=== PATIENT | female | born 1955 | race African-American/Black ===

== ENCOUNTER 2017-12-28 13:43 | Inpatient (IN) ==
[2017-12-28] MEDS ORDERED: SODIUM CHLORIDE 0.9% 1,000 ML IV STA (14:05)
[2017-12-28] MEDS ORDERED: ONDANSETRON 4 MG/2 ML VIAL IV STA (14:05)
[2017-12-28 14:10] LABS: Basophils # 0.1 10*3/uL (0.0-0.2); Basophils % 0.8 % (0.0-0.8); Eosinophils # 1.8 10*3/uL (0.0-0.87); Eosinophils % 17.1 % (0.00-10.9); Hematocrit 30.3 VOL% (35.7-47.0); Hemoglobin 10.1 GM/DL (12.0-16.0); Immature Granulocytes % 0.4 %; Immature Granulocytes Absolute 0.04 #; Lymphocytes # 2.5 10*3/uL (1.4-4.0); Lymphocytes % 24.2 % (21.3-54.2); Mean Corpuscular HGB Conc 33.3 GM/DL (32-36); Mean Corpuscular Hemoglobin 32 PG (27-34); Mean Corpuscular Volume 94.4 FL (87-102); Mean Platelet Volume 9.1 FL (9.6-12.0); Monocytes # 0.8 10*3/uL (0.11-0.8); Monocytes % 7.7 % (1.7-12.7); Neutrophils # 5.1 10*3/uL (1.4-7.4); Neutrophils % 49.8 % (38.7-73.9); Platelet Count 258 T/CUMM (130-400); Red Blood Count 3.21 MC/CUMM (3.8-5.5); Red Cell Distribution Width 13.4 % (9.3-17.3); White Blood Count 10.2 T/CUMM (4-12)
[2017-12-28 14:29] LABS: Alanine Aminotransferase 15 U/L (13-56); Albumin 3.3 G/DL (3.4-5.0); Alkaline Phosphatase 102 U/L (45-117); Aspartate Amino Transferase 16 U/L (0-37); Bilirubin,Total < 0.39 MG/DL (0.2-1.0); Blood Urea Nitrogen 23 MG/DL (7-18); Calcium 8.2 MG/DL (8.5-10.1); Glucose 131 MG/DL (74-106); Osmolality,Calculated 288.1 MOS/KG (273-304); Potassium 3.6 MMOL/L (3.5-5.1); Sodium 142 MMOL/L (136-145); Total Protein 7.2 G/DL (6.4-8.3)
[2017-12-28 14:35] LABS: Eosinophils 18 % (0-10); Lymphocytes 26 % (20-55); Segmented Neutrophils 53 % (50-85)
[2017-12-28 14:36] LABS: Hypochromasia 1+; Platelet Estimate Normal
[2017-12-28 14:37] LABS: Reactive Lymphocytes 1+; Total Cells Counted 100
[2017-12-28] MEDS ORDERED: ONDANSETRON 4 MG/2 ML VIAL IV PRN (16:16)
[2017-12-28] MEDS ORDERED: DEXTROSE 50% 25 GM/50 ML VIAL IV PRN (16:24)
[2017-12-28] MEDS ORDERED: GLUCAGON 1 MG VIAL IM PRN (16:24)
[2017-12-28] MEDS ORDERED: SODIUM CHLORIDE 0.9% 500 ML IV STA (17:40)
[2017-12-28] MEDS ORDERED: metroNIDAZOLE 500 MG/100 ML PREMIX IV ONE (17:59)
[2017-12-28] MEDS: metroNIDAZOLE INJ 500 MG in PREMIX 1 EACH IV SCH (18:00)
[2017-12-28] MEDS ORDERED: ENOXAPARIN 30 MG/0.3 ML SYRINGE SUBCUT SCH (21:00)
[2017-12-28] MEDS ORDERED: SODIUM CHLORIDE 0.9% 2,000 ML IV STA (21:52)
[2017-12-28] MEDS: SODIUM CHLORIDE 0.9% 1,000 ML IV SCH (22:00)
[2017-12-28] MEDS: CIPROFLOXACIN INJ 400 MG in PREMIX 1 EACH IV SCH (22:41)
[2017-12-28] MEDS: PREGABALIN 100 MG CAPSULE PO SCH (22:42)
[2017-12-28] MEDS: ASPIRIN EC 81 MG TABLET PO SCH (22:42)
[2017-12-28] MEDS: INSULIN LISPRO 100 UNIT/ML SUBCUT SCH (22:47)
[2017-12-28 23:22] LABS: Thyroid Stimulating Hormone 0.802 uIU/ml (0.358-3.74)
[2017-12-29 00:30] LABS: Troponin I Only < 0.015 NG/ML (0.00-0.045)
[2017-12-29] MEDS: metroNIDAZOLE INJ 500 MG in PREMIX 1 EACH IV SCH ×3 (01:58→17:41)
[2017-12-29] MEDS ORDERED: MAGNESIUM SULF RIDER 4 GM in PREMIX 1 EACH IV PRN (02:12)
[2017-12-29] MEDS: GABAPENTIN 400 MG CAPSULE PO SCH ×2 (02:27→08:08)
[2017-12-29] MEDS: MAGNESIUM SULF RIDER 2 GM in PREMIX 1 EACH IV PRN (03:50)
[2017-12-29 04:59] LABS: Basophils # 0.1 10*3/uL (0.0-0.2); Basophils % 0.9 % (0.0-0.8); Eosinophils # 1.9 10*3/uL (0.0-0.87); Eosinophils % 23.8 % (0.00-10.9); Hemoglobin 9.7 GM/DL (12.0-16.0); Immature Granulocytes % 0.4 %; Immature Granulocytes Absolute 0.03 #; Lymphocytes # 2.3 10*3/uL (1.4-4.0); Lymphocytes % 28.5 % (21.3-54.2); Mean Corpuscular HGB Conc 32.3 GM/DL (32-36); Mean Corpuscular Hemoglobin 30 PG (27-34); Mean Platelet Volume 9.9 FL (9.6-12.0); Monocytes # 0.5 10*3/uL (0.11-0.8); Monocytes % 6.6 % (1.7-12.7); Neutrophils # 3.2 10*3/uL (1.4-7.4); Neutrophils % 39.8 % (38.7-73.9); Platelet Count 231 T/CUMM (130-400); Red Blood Count 3.19 MC/CUMM (3.8-5.5); Red Cell Distribution Width 13.2 % (9.3-17.3); White Blood Count 7.9 T/CUMM (4-12)
[2017-12-29 05:22] LABS: Albumin 2.8 G/DL (3.4-5.0); Bilirubin,Total 0.5 MG/DL (0.2-1.0); Calcium 7.6 MG/DL (8.5-10.1); Osmolality,Calculated 287.8 MOS/KG (273-304); Risk Ratio 3.43; Total Protein 6.1 G/DL (6.4-8.3)
[2017-12-29 05:46] LABS: Eosinophils 38 % (0-10); Hypochromasia 1+; Lymphocytes 26 % (20-55); Platelet Estimate Adequate; Segmented Neutrophils 31 % (50-85); Total Cells Counted 100
[2017-12-29] MEDS: SODIUM CHLORIDE 0.9% 1,000 ML IV SCH ×2 (07:00→12:30)
[2017-12-29] MEDS: ASPIRIN EC 81 MG TABLET PO SCH ×2 (08:07→20:35)
[2017-12-29] MEDS: PREGABALIN 100 MG CAPSULE PO SCH ×2 (08:07→20:35)
[2017-12-29] MEDS: PANTOPRAZOLE 40 MG VIAL IV SCH (08:08)
[2017-12-29] MEDS: AMITRIPTYLINE 50 MG TABLET PO SCH (08:17)
[2017-12-29] MEDS: INSULIN LISPRO 100 UNIT/ML SUBCUT SCH ×4 (08:23→20:35)
[2017-12-29 08:36] LABS: Apearance,Urine CLEAR (Clear); Bilirubin,Urine Negative (Negative); Blood, Urine Negative (Negative); Glucose,Urine (UA) Negative (Negative); Ketones,Urine Negative (Negative); Mucus,Urine Occasional /LPF (Occasional); Nitrite,Urine Negative (Negative); Protein,Urine Negative; RBC,Urine 1 /HPF (0-4); Squamous Epithelial Cell,Urine Occasional /HPF (0-10); Urine Color Straw (Yellow); Urine Specific Gravity 1.005 (1.001-1.035); Urine Urobilinogen < 2.0 EU/DL (0.2-1.0); WBC,Urine 1 /HPF (0-6)
[2017-12-29] MEDS: GABAPENTIN 600 MG TABLET PO SCH ×2 (10:19→20:35)
[2017-12-29] MEDS: CIPROFLOXACIN INJ 400 MG in PREMIX 1 EACH IV SCH (14:26)
[2017-12-30] MEDS: metroNIDAZOLE INJ 500 MG in PREMIX 1 EACH IV SCH ×3 (01:01→17:39)
[2017-12-30] MEDS: SODIUM CHLORIDE 0.9% 1,000 ML IV SCH ×3 (02:12→17:40)
[2017-12-30 04:15] LABS: Basophils # 0.1 10*3/uL (0.0-0.2); Eosinophils # 1.7 10*3/uL (0.0-0.87); Hematocrit 29.5 VOL% (35.7-47.0); Hemoglobin 9.7 GM/DL (12.0-16.0); Immature Granulocytes % 0.4 %; Immature Granulocytes Absolute 0.03 #; Lymphocytes # 2.3 10*3/uL (1.4-4.0); Lymphocytes % 31.1 % (21.3-54.2); Mean Corpuscular HGB Conc 32.9 GM/DL (32-36); Mean Corpuscular Hemoglobin 31 PG (27-34); Mean Corpuscular Volume 93.7 FL (87-102); Mean Platelet Volume 9.5 FL (9.6-12.0); Monocytes # 0.4 10*3/uL (0.11-0.8); Monocytes % 5.9 % (1.7-12.7); Neutrophils # 2.7 10*3/uL (1.4-7.4); Neutrophils % 37.6 % (38.7-73.9); Platelet Count 241 T/CUMM (130-400); Red Blood Count 3.15 MC/CUMM (3.8-5.5); White Blood Count 7.2 T/CUMM (4-12)
[2017-12-30 04:40] LABS: Calcium 7.9 MG/DL (8.5-10.1); Osmolality,Calculated 288.6 MOS/KG (273-304); Potassium 4.1 MMOL/L (3.5-5.1)
[2017-12-30 04:54] LABS: Band Neutrophils 3 % (0-10); Eosinophils 20 % (0-10); Lymphocytes 33 % (20-55); Platelet Estimate Normal; Segmented Neutrophils 35 % (50-85); Total Cells Counted 100
[2017-12-30 05:34] LABS: Collection Time,Urine 12 HOURS; Total Protein 12 Hr Ur Result 83 MG/12HR (0-75)
[2017-12-30] MEDS: PANTOPRAZOLE 40 MG VIAL IV SCH (08:27)
[2017-12-30] MEDS: CIPROFLOXACIN INJ 400 MG in PREMIX 1 EACH IV SCH ×2 (08:29→20:17)
[2017-12-30] MEDS: INSULIN LISPRO 100 UNIT/ML SUBCUT SCH ×4 (08:32→20:48)
[2017-12-30] MEDS: GABAPENTIN 600 MG TABLET PO SCH ×2 (08:47→20:41)
[2017-12-30] MEDS: PREGABALIN 100 MG CAPSULE PO SCH ×2 (08:47→20:41)
[2017-12-30] MEDS: AMITRIPTYLINE 50 MG TABLET PO SCH (08:51)
[2017-12-30] MEDS: ASPIRIN EC 81 MG TABLET PO SCH ×2 (08:51→20:41)
[2017-12-30] MEDS ORDERED: LIDOCAINE 100 MG/5 ML SYRINGE ONE (09:00)
[2017-12-30] MEDS ORDERED: PROPOFOL 200 MG/20 ML VIAL IV ONE (09:00)
[2017-12-30] MEDS ORDERED: ENOXAPARIN 40 MG/0.4 ML SYRINGE SUBCUT SCH (09:00)
[2017-12-30] MEDS ORDERED: BISACODYL 5 MG TABLET PO ONE (12:00)
[2017-12-30] MEDS ORDERED: HYDROmorphone 2 MG/1 ML VIAL IV ONE ×2 (12:32→20:34)
[2017-12-30] MEDS: MAGNESIUM SULF RIDER 2 GM in PREMIX 1 EACH IV PRN (14:11)
[2017-12-30] MEDS: hydrALAZINE 20 MG/1 ML VIAL IV PRN (16:34)
[2017-12-30] MEDS ORDERED: POLYETHYLENE GLYCOL POWDER 255 GM BOTTLE PO ONE (18:00)
[2017-12-31] MEDS: metroNIDAZOLE INJ 500 MG in PREMIX 1 EACH IV SCH ×3 (02:15→16:08)
[2017-12-31] MEDS ORDERED: SODIUM CHLORIDE 0.9% 1,000 ML IV SCH (09:00)
[2017-12-31] MEDS: ASPIRIN EC 81 MG TABLET PO SCH ×2 (09:16→21:24)
[2017-12-31] MEDS: AMITRIPTYLINE 50 MG TABLET PO SCH (09:16)
[2017-12-31] MEDS: CIPROFLOXACIN INJ 400 MG in PREMIX 1 EACH IV SCH ×2 (09:16→21:25)
[2017-12-31] MEDS: GABAPENTIN 600 MG TABLET PO SCH ×2 (09:17→21:24)
[2017-12-31] MEDS: INSULIN LISPRO 100 UNIT/ML SUBCUT SCH ×4 (09:17→21:25)
[2017-12-31] MEDS: PREGABALIN 100 MG CAPSULE PO SCH ×2 (09:17→21:24)
[2017-12-31] MEDS: PANTOPRAZOLE 40 MG VIAL IV SCH (09:17)
[2017-12-31] MEDS: SODIUM CHLORIDE 0.9% 1,000 ML IV SCH (10:00)
[2017-12-31] MEDS ORDERED: BUTALBITAL/ACETAMIN/CAFFEINE 50-325-40 MG TABLET PO STA (10:37)
[2017-12-31] MEDS: hydrALAZINE 20 MG/1 ML VIAL IV PRN (16:08)
[2018-01-01] MEDS: metroNIDAZOLE INJ 500 MG in PREMIX 1 EACH IV SCH (02:20)
[2018-01-01] MEDS: INSULIN LISPRO 100 UNIT/ML SUBCUT SCH ×4 (08:17→21:53)
[2018-01-01] MEDS: CIPROFLOXACIN INJ 400 MG in PREMIX 1 EACH IV SCH (08:21)
[2018-01-01] MEDS ORDERED: HYDROmorphone 2 MG/1 ML VIAL IV ONE (08:55)
[2018-01-01] MEDS: diphenhydrAMINE 50 MG/1 ML VIAL IV SCH ×3 (09:08→21:20)
[2018-01-01] MEDS: ONDANSETRON 4 MG/2 ML VIAL IV SCH ×3 (09:12→21:20)
[2018-01-01] MEDS: PREGABALIN 100 MG CAPSULE PO SCH ×2 (09:17→21:21)
[2018-01-01] MEDS: ASPIRIN EC 81 MG TABLET PO SCH ×2 (09:17→21:21)
[2018-01-01] MEDS: AMITRIPTYLINE 50 MG TABLET PO SCH (09:17)
[2018-01-01] MEDS: GABAPENTIN 400 MG CAPSULE PO SCH ×4 (10:58→21:20)
[2018-01-01] MEDS: PANTOPRAZOLE 40 MG TABLET PO SCH (10:58)
[2018-01-01] MEDS: LISINOPRIL 20 MG TABLET PO SCH (10:58)
[2018-01-01 12:29] LABS: Basophils # 0.1 10*3/uL (0.0-0.2); Basophils % 0.9 % (0.0-0.8); Eosinophils # 2.3 10*3/uL (0.0-0.87); Eosinophils % 22.5 % (0.00-10.9); Hematocrit 32.8 VOL% (35.7-47.0); Hemoglobin 10.8 GM/DL (12.0-16.0); Immature Granulocytes % 0.4 %; Immature Granulocytes Absolute 0.04 #; Lymphocytes # 2.3 10*3/uL (1.4-4.0); Lymphocytes % 23.2 % (21.3-54.2); Mean Corpuscular HGB Conc 32.9 GM/DL (32-36); Mean Corpuscular Hemoglobin 31 PG (27-34); Mean Corpuscular Volume 92.9 FL (87-102); Mean Platelet Volume 10.8 FL (9.6-12.0); Monocytes # 0.6 10*3/uL (0.11-0.8); Monocytes % 6.3 % (1.7-12.7); Neutrophils # 4.7 10*3/uL (1.4-7.4); Neutrophils % 46.7 % (38.7-73.9); Platelet Count 212 T/CUMM (130-400); Red Blood Count 3.53 MC/CUMM (3.8-5.5)
[2018-01-01 12:58] LABS: Eosinophils 28 % (0-10); Hypochromasia 1+; Lymphocytes 27 % (20-55); Nucleated Red Blood Cells 1 (0-5); Platelet Estimate Adequate; Segmented Neutrophils 41 % (50-85); Total Cells Counted 100
[2018-01-01 13:03] LABS: Calcium 8.4 MG/DL (8.5-10.1); Osmolality,Calculated 279.1 MOS/KG (273-304); Potassium 3.5 MMOL/L (3.5-5.1)
[2018-01-02] MEDS: diphenhydrAMINE 50 MG/1 ML VIAL IV SCH (04:12)
[2018-01-02] MEDS: ONDANSETRON 4 MG/2 ML VIAL IV SCH (04:12)
[2018-01-02] MEDS: INSULIN LISPRO 100 UNIT/ML SUBCUT SCH ×4 (07:21→22:06)
[2018-01-02] MEDS ORDERED: HYDROmorphone 2 MG/1 ML VIAL IV ONE (08:18)
[2018-01-02] MEDS: PREGABALIN 100 MG CAPSULE PO SCH ×2 (08:40→21:10)
[2018-01-02] MEDS: AMITRIPTYLINE 50 MG TABLET PO SCH (08:40)
[2018-01-02] MEDS: LISINOPRIL 20 MG TABLET PO SCH (08:40)
[2018-01-02] MEDS: PANTOPRAZOLE 40 MG TABLET PO SCH (08:40)
[2018-01-02] MEDS: GABAPENTIN 400 MG CAPSULE PO SCH ×4 (08:40→21:10)
[2018-01-02] MEDS: ASPIRIN EC 81 MG TABLET PO SCH (08:40)
[2018-01-02] MEDS ORDERED: SODIUM CHLORIDE 0.9% 1,000 ML IV SCH (11:30)
[2018-01-02] MEDS: hydrALAZINE 20 MG/1 ML VIAL IV PRN (11:48)
[2018-01-02] MEDS ORDERED: AMITRIPTYLINE 50 MG TABLET PO SCH (11:48)
[2018-01-02 12:18] LABS: Basophils # 0.1 10*3/uL (0.0-0.2); Basophils % 0.9 % (0.0-0.8); Eosinophils # 2.4 10*3/uL (0.0-0.87); Eosinophils % 28.3 % (0.00-10.9); Hematocrit 31.7 VOL% (35.7-47.0); Hemoglobin 10.8 GM/DL (12.0-16.0); Immature Granulocytes % 0.2 %; Immature Granulocytes Absolute 0.02 #; Lymphocytes # 1.9 10*3/uL (1.4-4.0); Lymphocytes % 22.6 % (21.3-54.2); Mean Corpuscular HGB Conc 34.1 GM/DL (32-36); Mean Corpuscular Hemoglobin 31 PG (27-34); Mean Corpuscular Volume 91.1 FL (87-102); Monocytes # 0.5 10*3/uL (0.11-0.8); Monocytes % 5.7 % (1.7-12.7); Neutrophils # 3.6 10*3/uL (1.4-7.4); Neutrophils % 42.3 % (38.7-73.9); Platelet Count 254 T/CUMM (130-400); Red Blood Count 3.48 MC/CUMM (3.8-5.5); Red Cell Distribution Width 13.2 % (9.3-17.3); White Blood Count 8.4 T/CUMM (4-12)
[2018-01-02 12:28] LABS: PT Patient Result 10.7 SECS; Partial Thromboplastin Time 25.4 SECS (0-40)
[2018-01-02 12:39] LABS: Eosinophils 24 % (0-10); Hypochromasia 1+; Lymphocytes 20 % (20-55); Platelet Estimate Adequate; Segmented Neutrophils 49 % (50-85); Total Cells Counted 100
[2018-01-02] MEDS: ASPIRIN 325 MG TABLET PO SCH (12:56)
[2018-01-02] MEDS: amLODIPine 10 MG TABLET PO SCH (12:57)
[2018-01-02] MEDS: HydrOXYzine PAMOATE 25 MG CAPSULE PO PRN ×2 (13:00→21:10)
[2018-01-02 13:01] LABS: Alanine Aminotransferase 16 U/L (13-56); Albumin 3.5 G/DL (3.4-5.0); Alkaline Phosphatase 97 U/L (45-117); Aspartate Amino Transferase 21 U/L (0-37); Bilirubin,Total < 0.39 MG/DL (0.2-1.0); Blood Urea Nitrogen 5 MG/DL (7-18); Calcium 8.2 MG/DL (8.5-10.1); Glucose 161 MG/DL (74-106); Osmolality,Calculated 285.8 MOS/KG (273-304); Potassium 3.6 MMOL/L (3.5-5.1); Sodium 144 MMOL/L (136-145); Total Protein 6.9 G/DL (6.4-8.3)
[2018-01-02 17:13] LABS: Apearance,Urine CLEAR (Clear); Bilirubin,Urine Negative (Negative); Blood, Urine Negative (Negative); Glucose,Urine (UA) Negative (Negative); Ketones,Urine Negative (Negative); Mucus,Urine Occasional /LPF (Occasional); Nitrite,Urine Negative (Negative); Protein,Urine Negative; RBC,Urine 1 /HPF (0-4); Squamous Epithelial Cell,Urine Occasional /HPF (0-10); Urine Color Yellow (Yellow); Urine Urobilinogen < 2.0 EU/DL (0.2-1.0); WBC,Urine 1 /HPF (0-6)
[2018-01-02] MEDS: CARVEDILOL 3.125 MG TABLET PO SCH (21:10)
[2018-01-03 05:49] LABS: Basophils # 0.1 10*3/uL (0.0-0.2); Basophils % 0.9 % (0.0-0.8); Eosinophils # 2.2 10*3/uL (0.0-0.87); Eosinophils % 25.3 % (0.00-10.9); Hematocrit 33.2 VOL% (35.7-47.0); Immature Granulocytes % 0.3 %; Immature Granulocytes Absolute 0.03 #; Lymphocytes % 23.4 % (21.3-54.2); Mean Corpuscular HGB Conc 33.1 GM/DL (32-36); Mean Corpuscular Hemoglobin 31 PG (27-34); Mean Corpuscular Volume 93.8 FL (87-102); Mean Platelet Volume 11.2 FL (9.6-12.0); Monocytes # 0.6 10*3/uL (0.11-0.8); Monocytes % 6.7 % (1.7-12.7); Neutrophils # 3.8 10*3/uL (1.4-7.4); Neutrophils % 43.4 % (38.7-73.9); Platelet Count 208 T/CUMM (130-400); Red Blood Count 3.54 MC/CUMM (3.8-5.5); Red Cell Distribution Width 13.3 % (9.3-17.3); White Blood Count 8.7 T/CUMM (4-12)
[2018-01-03 06:05] LABS: Calcium 8.1 MG/DL (8.5-10.1); Osmolality,Calculated 283.3 MOS/KG (273-304); Potassium 3.5 MMOL/L (3.5-5.1)
[2018-01-03 07:10] LABS: Eosinophils 30 % (0-10); Hypochromasia 1+; Lymphocytes 29 % (20-55); Microcytosis 1+; Segmented Neutrophils 39 % (50-85); Total Cells Counted 100
[2018-01-03 07:11] LABS: Platelet Estimate Normal
[2018-01-03 08:03] VITALS: BP 124/81
[2018-01-03] MEDS: INSULIN LISPRO 100 UNIT/ML SUBCUT SCH (08:49)
[2018-01-03] MEDS: GABAPENTIN 400 MG CAPSULE PO SCH (08:54)
[2018-01-03] MEDS: CARVEDILOL 3.125 MG TABLET PO SCH (08:54)
[2018-01-03] MEDS: amLODIPine 10 MG TABLET PO SCH (08:55)
[2018-01-03] MEDS: PANTOPRAZOLE 40 MG TABLET PO SCH (08:55)
[2018-01-03] MEDS: ASPIRIN 325 MG TABLET PO SCH (08:55)
[2018-01-03] MEDS: PREGABALIN 100 MG CAPSULE PO SCH (08:55)
== END 2018-01-03 11:35 | disposition home or self-care (01) | DRG 392 ==
LOC: EDBD → EDUNIT# → N.EDINP 13:43 → N.ED 13:43 → N.CC 19:06 → SUATTDRO 21:02 → N.CC 21:50 → N.2E 12-29 16:00
PROVIDERS: ADMIT Internal Medicine; ATTEND Internal Medicine

== ENCOUNTER 2021-08-25 09:12 | Inpatient (IN) ==
[2021-08-25] MEDS ORDERED: ONDANSETRON 4 MG/2 ML VIAL ONE (10:33)
[2021-08-25] MEDS ORDERED: HYDROmorphone 2 MG/1 ML VIAL ONE (10:34)
[2021-08-25] MEDS ORDERED: HYDROmorphone 2 MG/1 ML VIAL IV STA ×2 (10:50→13:49)
[2021-08-25] MEDS ORDERED: ONDANSETRON 4 MG/2 ML VIAL IV STA (10:50)
[2021-08-25 10:59] LABS: Basophils % 0.3 % (0.0-0.8); Eosinophils # 0.1 10*3/uL (0.0-0.87); Eosinophils % 1.1 % (0.00-10.9); Hematocrit 26.1 VOL% (35.7-47.0); Hemoglobin 8.3 GM/DL (12.0-16.0); Immature Granulocytes % 0.5 %; Immature Granulocytes Absolute 0.04 #; Lymphocytes % 12.8 % (21.3-54.2); Mean Corpuscular HGB Conc 31.8 GM/DL (32-36); Mean Corpuscular Volume 86.7 FL (87-102); Mean Platelet Volume 8.4 FL (9.6-12.0); Monocytes % 5.3 % (1.7-12.7); Platelet Count 596 T/CUMM (130-400); Red Blood Count 3.01 MC/CUMM (3.8-5.5); Red Cell Distribution Width 16.6 % (9.3-17.3); White Blood Count 7.6 T/CUMM (4-12)
[2021-08-25 11:18] LABS: Alanine Aminotransferase 37 U/L (13-56); Albumin 1.5 G/DL (3.4-5.0); Alkaline Phosphatase 119 U/L (45-117); Aspartate Amino Transferase 37 U/L (0-37); Bilirubin,Total < 0.39 MG/DL (0.20-1.00); Blood Urea Nitrogen 5 MG/DL (7-18); Calcium 8.6 MG/DL (8.5-10.1); Carbon Dioxide 26 MMOL/L (21-32); Estimated Glom Filtration Rate 115 ML/MIN; Glucose 103 MG/DL (74-106); Osmolality,Calculated 269.8 MOS/KG (273-304); Potassium 3.7 MMOL/L (3.5-5.1); Sodium 137 MMOL/L (136-145); Total Protein 6.2 G/DL (6.4-8.2)
[2021-08-25] MEDS ORDERED: DEXTROSE 10% 250 ML BAG IV PRN (13:41)
[2021-08-25] MEDS ORDERED: ACETAMINOPHEN 325 MG TABLET PO PRN (13:41)
[2021-08-25] MEDS ORDERED: GLUCAGON 1 MG VIAL IM PRN ×2 (13:41→15:56)
[2021-08-25] MEDS ORDERED: ONDANSETRON 4 MG/2 ML VIAL IV PRN (13:41)
[2021-08-25] MEDS ORDERED: FUROSEMIDE 40 MG/4 ML VIAL IV ONE (15:12)
[2021-08-25] MEDS ORDERED: SKIN HEALING OINT (AQUAPHOR) 50 GM TUBE TOP PRN (15:12)
[2021-08-25] MEDS ORDERED: cefTRIAXone 1,000 MG in SODIUM CHLORIDE 0.9% 100 ML IV ONE (15:12)
[2021-08-25] MEDS: hydrOXYzine HCL 25 MG TABLET PO PRN (15:55)
[2021-08-25] MEDS: ASPIRIN EC 81 MG TABLET PO SCH (15:55)
[2021-08-25] MEDS ORDERED: DEXTROSE 50% 25 GM/50 ML VIAL IV PRN (15:56)
[2021-08-25] MEDS: SODIUM CHLORIDE 0.9% 1,000 ML IV SCH (16:00)
[2021-08-25] MEDS: ENOXAPARIN 40 MG/0.4 ML SYRINGE SUBCUT SCH (16:00)
[2021-08-25] MEDS: methylPREDNISolone SOD SUC 40 MG/1 ML VIAL IV SCH (16:01)
[2021-08-25] MEDS: HYDROmorphone 2 MG/1 ML VIAL IV PRN (18:20)
[2021-08-25] MEDS: KETOROLAC 30 MG/1 ML VIAL IV SCH (18:47)
[2021-08-25] MEDS: INSULIN REGULAR 100 UNIT/ML SUBCUT SCH ×2 (18:57→21:44)
[2021-08-25] MEDS: ALBUTEROL/IPRATROPIUM 3 ML NEB RESP TX SCH (20:00)
[2021-08-25] MEDS: LIDOCAINE 5% PATCH TRANSDERM SCH (20:05)
[2021-08-25] MEDS: ALBUMIN 25% 25 GM/100 ML VIAL IV SCH (21:40)
[2021-08-25] MEDS: PREGABALIN 50 MG CAPSULE PO SCH (21:40)
[2021-08-25] MEDS: DOCUSATE SODIUM 100 MG CAPSULE PO SCH (21:44)
[2021-08-25] MEDS: FERROUS SULFATE 325 MG TABLET PO SCH (21:44)
[2021-08-25] MEDS: QUEtiapine 25 MG TABLET PO SCH (22:49)
[2021-08-26] MEDS: HYDROmorphone 2 MG/1 ML VIAL IV PRN ×2 (00:27→15:54)
[2021-08-26] MEDS: KETOROLAC 30 MG/1 ML VIAL IV SCH ×4 (00:27→22:09)
[2021-08-26] MEDS: ALBUTEROL/IPRATROPIUM 3 ML NEB RESP TX SCH ×4 (01:40→19:20)
[2021-08-26] MEDS: methylPREDNISolone SOD SUC 40 MG/1 ML VIAL IV SCH ×2 (03:45→15:55)
[2021-08-26] MEDS: ALBUMIN 25% 25 GM/100 ML VIAL IV SCH ×3 (04:23→22:53)
[2021-08-26] MEDS: SODIUM CHLORIDE 0.9% 1,000 ML IV SCH ×2 (05:01→22:53)
[2021-08-26 05:51] LABS: Basophils % 0.3 % (0.0-0.8); Eosinophils # 0.1 10*3/uL (0.0-0.87); Hematocrit 19.7 VOL% (35.7-47.0); Immature Granulocytes % 0.6 %; Immature Granulocytes Absolute 0.05 #; Lymphocytes # 1.8 10*3/uL (1.4-4.0); Lymphocytes % 22.3 % (21.3-54.2); Mean Corpuscular Volume 88.7 FL (87-102); Mean Platelet Volume 8.5 FL (9.6-12.0); Monocytes % 8.1 % (1.7-12.7); Neutrophils % 67.7 % (38.7-73.9); Platelet Count 718 T/CUMM (130-400); Red Blood Count 2.22 MC/CUMM (3.8-5.5); Red Cell Distribution Width 16.8 % (9.3-17.3); White Blood Count 7.9 T/CUMM (4-12)
[2021-08-26 05:53] LABS: Hemoglobin 6.1 GM/DL (12.0-16.0)
[2021-08-26 06:06] LABS: Albumin 1.8 G/DL (3.4-5.0); Bilirubin,Total 0.8 MG/DL (0.20-1.00); Calcium 7.9 MG/DL (8.5-10.1); Osmolality,Calculated 276.3 MOS/KG (273-304); Potassium 3.2 MMOL/L (3.5-5.1); Total Protein 5.5 G/DL (6.4-8.2)
[2021-08-26 06:23] LABS: Eosinophils 2 % (0-10); Hypochromia 1+; Lymphocytes 17 % (20-55); Microcytosis 1+; Segmented Neutrophils 74 % (50-85); Total Cells Counted 100
[2021-08-26] MEDS ORDERED: cefTRIAXone 1,000 MG in SODIUM CHLORIDE 0.9% 100 ML IV SCH (08:00)
[2021-08-26] MEDS: INSULIN REGULAR 100 UNIT/ML SUBCUT SCH ×4 (08:12→22:09)
[2021-08-26] MEDS: LIDOCAINE 5% PATCH TRANSDERM SCH (09:27)
[2021-08-26] MEDS: HALOPERIDOL 5 MG/ML AMP IM PRN (09:27)
[2021-08-26] MEDS ORDERED: VANCOMYCIN INJ 500 MG in SODIUM CHLORIDE 0.9% 100 ML IV SCH (09:30)
[2021-08-26] MEDS ORDERED: SODIUM CHLORIDE 0.9% 1,000 ML IV PRN (09:41)
[2021-08-26] MEDS: FERROUS SULFATE 325 MG TABLET PO SCH ×2 (13:20→22:08)
[2021-08-26] MEDS: QUEtiapine 25 MG TABLET PO SCH ×2 (13:20→22:08)
[2021-08-26] MEDS: ASPIRIN EC 81 MG TABLET PO SCH (13:21)
[2021-08-26] MEDS: DOCUSATE SODIUM 100 MG CAPSULE PO SCH ×2 (13:21→22:08)
[2021-08-26] MEDS: PANTOPRAZOLE 40 MG TABLET PO SCH (13:21)
[2021-08-26] MEDS: PREGABALIN 50 MG CAPSULE PO SCH ×2 (13:22→22:08)
[2021-08-26] MEDS ORDERED: POTASSIUM CHLORIDE 20 MEQ TABLET PO PRN (13:55)
[2021-08-26] MEDS ORDERED: MAGNESIUM SULF RIDER 2 GM/50 ML PREMIX IV ONE ×2 (13:56→22:30)
[2021-08-26] MEDS: carvediloL 3.125 MG TABLET PO SCH ×2 (15:29→22:08)
[2021-08-26] MEDS: ENOXAPARIN 40 MG/0.4 ML SYRINGE SUBCUT SCH (15:56)
[2021-08-26] MEDS: VANCOMYCIN INJ 1,000 MG in SODIUM CHLORIDE 0.9% 250 ML IV SCH (15:59)
[2021-08-26] MEDS: POTASSIUM CHLORIDE 20 MEQ TABLET PO SCH ×2 (16:24→22:08)
[2021-08-27] MEDS: ALBUTEROL/IPRATROPIUM 3 ML NEB RESP TX SCH ×4 (00:40→18:49)
[2021-08-27] MEDS: KETOROLAC 30 MG/1 ML VIAL IV SCH ×5 (00:44→23:28)
[2021-08-27] MEDS: VANCOMYCIN INJ 1,000 MG in SODIUM CHLORIDE 0.9% 250 ML IV SCH ×3 (00:44→22:14)
[2021-08-27] MEDS: methylPREDNISolone SOD SUC 40 MG/1 ML VIAL IV SCH ×2 (02:32→16:18)
[2021-08-27] MEDS: ALBUMIN 25% 25 GM/100 ML VIAL IV SCH ×3 (04:13→20:51)
[2021-08-27 08:02] LABS: Basophils % 0.1 % (0.0-0.8); Eosinophils % 0.4 % (0.00-10.9); Hematocrit 26.3 VOL% (35.7-47.0); Immature Granulocytes % 0.9 %; Immature Granulocytes Absolute 0.07 #; Lymphocytes # 0.8 10*3/uL (1.4-4.0); Lymphocytes % 11.2 % (21.3-54.2); Mean Corpuscular HGB Conc 31.9 GM/DL (32-36); Mean Corpuscular Volume 87.1 FL (87-102); Mean Platelet Volume 8.1 FL (9.6-12.0); Monocytes % 4.8 % (1.7-12.7); Neutrophils % 82.6 % (38.7-73.9); Platelet Count 614 T/CUMM (130-400); Red Cell Distribution Width 15.8 % (9.3-17.3); White Blood Count 7.5 T/CUMM (4-12)
[2021-08-27 08:04] LABS: Albumin 2.6 G/DL (3.4-5.0); Bilirubin,Total 0.4 MG/DL (0.20-1.00); Calcium 8.3 MG/DL (8.5-10.1); Osmolality,Calculated 275.5 MOS/KG (273-304); Potassium 3.8 MMOL/L (3.5-5.1); Total Protein 6.4 G/DL (6.4-8.2)
[2021-08-27 08:08] LABS: Red Blood Count 3.02 MC/CUMM (3.8-5.5)
[2021-08-27 08:09] LABS: Hemoglobin 8.4 GM/DL (12.0-16.0)
[2021-08-27] MEDS: INSULIN REGULAR 100 UNIT/ML SUBCUT SCH ×4 (08:52→21:18)
[2021-08-27] MEDS: LIDOCAINE 5% PATCH TRANSDERM SCH (09:24)
[2021-08-27] MEDS: DOCUSATE SODIUM 100 MG CAPSULE PO SCH ×2 (09:27→20:09)
[2021-08-27] MEDS: ASPIRIN EC 81 MG TABLET PO SCH (09:28)
[2021-08-27] MEDS: carvediloL 3.125 MG TABLET PO SCH ×2 (09:28→20:49)
[2021-08-27] MEDS: POTASSIUM CHLORIDE 20 MEQ TABLET PO SCH ×2 (09:28→20:48)
[2021-08-27] MEDS: FERROUS SULFATE 325 MG TABLET PO SCH ×2 (09:29→20:49)
[2021-08-27] MEDS: PREGABALIN 50 MG CAPSULE PO SCH ×2 (09:29→20:49)
[2021-08-27] MEDS: QUEtiapine 25 MG TABLET PO SCH ×2 (09:30→20:49)
[2021-08-27] MEDS: PANTOPRAZOLE 40 MG TABLET PO SCH (09:30)
[2021-08-27] MEDS: HYDROmorphone 2 MG/1 ML VIAL IV PRN ×2 (09:36→20:50)
[2021-08-27] MEDS ORDERED: MAGNESIUM HYDROXIDE SUSP 30 ML UDCUP PO PRN (13:06)
[2021-08-27] MEDS: HALOPERIDOL 5 MG/ML AMP IM PRN ×2 (13:33→20:50)
[2021-08-27] MEDS ORDERED: MAGNESIUM SULF RIDER 2 GM/50 ML PREMIX IV ONE (13:35)
[2021-08-27] MEDS: ENOXAPARIN 40 MG/0.4 ML SYRINGE SUBCUT SCH (16:18)
[2021-08-27] MEDS: SODIUM CHLORIDE 0.9% 1,000 ML IV SCH ×2 (20:08→20:11)
[2021-08-28] MEDS: ALBUTEROL/IPRATROPIUM 3 ML NEB RESP TX SCH ×4 (00:32→20:36)
[2021-08-28] MEDS: methylPREDNISolone SOD SUC 40 MG/1 ML VIAL IV SCH ×2 (03:03→15:44)
[2021-08-28] MEDS: ALBUMIN 25% 25 GM/100 ML VIAL IV SCH ×3 (03:07→20:28)
[2021-08-28] MEDS: SODIUM CHLORIDE 0.9% 1,000 ML IV SCH ×3 (04:12→23:45)
[2021-08-28] MEDS: HYDROmorphone 2 MG/1 ML VIAL IV PRN ×2 (04:15→16:17)
[2021-08-28 05:10] LABS: Basophils % 0.2 % (0.0-0.8); Eosinophils # 0.1 10*3/uL (0.0-0.87); Eosinophils % 1.3 % (0.00-10.9); Hematocrit 26.9 VOL% (35.7-47.0); Hemoglobin 8.7 GM/DL (12.0-16.0); Immature Granulocytes % 0.7 %; Immature Granulocytes Absolute 0.06 #; Lymphocytes # 1.4 10*3/uL (1.4-4.0); Lymphocytes % 16.6 % (21.3-54.2); Mean Corpuscular HGB Conc 32.3 GM/DL (32-36); Mean Corpuscular Volume 88.5 FL (87-102); Mean Platelet Volume 8.1 FL (9.6-12.0); Monocytes % 5.8 % (1.7-12.7); Neutrophils % 75.4 % (38.7-73.9); Platelet Count 660 T/CUMM (130-400); Red Blood Count 3.04 MC/CUMM (3.8-5.5); Red Cell Distribution Width 16.6 % (9.3-17.3); White Blood Count 8.4 T/CUMM (4-12)
[2021-08-28] MEDS: KETOROLAC 30 MG/1 ML VIAL IV SCH ×4 (05:20→23:41)
[2021-08-28 05:25] LABS: Albumin 3.1 G/DL (3.4-5.0); Bilirubin,Total 0.7 MG/DL (0.20-1.00); Calcium 8.5 MG/DL (8.5-10.1); Osmolality,Calculated 275.4 MOS/KG (273-304); Potassium 4.4 MMOL/L (3.5-5.1)
[2021-08-28] MEDS: INSULIN REGULAR 100 UNIT/ML SUBCUT SCH ×4 (08:23→21:06)
[2021-08-28] MEDS: LIDOCAINE 5% PATCH TRANSDERM SCH (08:28)
[2021-08-28] MEDS: carvediloL 3.125 MG TABLET PO SCH ×2 (08:28→20:27)
[2021-08-28] MEDS: PREGABALIN 50 MG CAPSULE PO SCH ×2 (08:28→20:27)
[2021-08-28] MEDS: ASPIRIN EC 81 MG TABLET PO SCH (08:28)
[2021-08-28] MEDS: QUEtiapine 25 MG TABLET PO SCH ×2 (08:29→20:28)
[2021-08-28] MEDS: FERROUS SULFATE 325 MG TABLET PO SCH ×2 (08:29→20:28)
[2021-08-28] MEDS: DOCUSATE SODIUM 100 MG CAPSULE PO SCH ×2 (08:29→20:28)
[2021-08-28] MEDS: PANTOPRAZOLE 40 MG TABLET PO SCH (08:29)
[2021-08-28] MEDS: POTASSIUM CHLORIDE 20 MEQ TABLET PO SCH ×2 (08:29→20:27)
[2021-08-28] MEDS: ENOXAPARIN 40 MG/0.4 ML SYRINGE SUBCUT SCH (15:44)
[2021-08-28] MEDS: VANCOMYCIN INJ 1,000 MG in SODIUM CHLORIDE 0.9% 250 ML IV SCH (15:45)
[2021-08-28] MEDS: HALOPERIDOL 5 MG/ML AMP IM PRN (20:27)
[2021-08-29] MEDS: ALBUTEROL/IPRATROPIUM 3 ML NEB RESP TX SCH ×4 (00:48→19:42)
[2021-08-29] MEDS: methylPREDNISolone SOD SUC 40 MG/1 ML VIAL IV SCH ×2 (04:03→15:02)
[2021-08-29] MEDS: ALBUMIN 25% 25 GM/100 ML VIAL IV SCH ×3 (04:03→20:36)
[2021-08-29] MEDS: KETOROLAC 30 MG/1 ML VIAL IV SCH ×3 (05:22→18:19)
[2021-08-29] MEDS: INSULIN REGULAR 100 UNIT/ML SUBCUT SCH ×4 (08:20→20:36)
[2021-08-29] MEDS: LIDOCAINE 5% PATCH TRANSDERM SCH (09:47)
[2021-08-29] MEDS: QUEtiapine 25 MG TABLET PO SCH ×2 (09:48→20:37)
[2021-08-29] MEDS: carvediloL 3.125 MG TABLET PO SCH ×2 (09:48→20:37)
[2021-08-29] MEDS: POTASSIUM CHLORIDE 20 MEQ TABLET PO SCH ×2 (09:48→20:37)
[2021-08-29] MEDS: PANTOPRAZOLE 40 MG TABLET PO SCH (09:48)
[2021-08-29] MEDS: FERROUS SULFATE 325 MG TABLET PO SCH ×2 (09:48→20:36)
[2021-08-29] MEDS: ASPIRIN EC 81 MG TABLET PO SCH (09:48)
[2021-08-29] MEDS: PREGABALIN 50 MG CAPSULE PO SCH ×2 (09:48→20:36)
[2021-08-29] MEDS: DOCUSATE SODIUM 100 MG CAPSULE PO SCH ×2 (09:48→20:36)
[2021-08-29] MEDS: VANCOMYCIN INJ 1,000 MG in SODIUM CHLORIDE 0.9% 250 ML IV SCH (10:38)
[2021-08-29] MEDS: SODIUM CHLORIDE 0.9% 1,000 ML IV SCH (11:55)
[2021-08-29] MEDS: ENOXAPARIN 40 MG/0.4 ML SYRINGE SUBCUT SCH (15:01)
[2021-08-29] MEDS: hydrOXYzine HCL 25 MG TABLET PO PRN (15:03)
[2021-08-29] MEDS: HYDROmorphone 2 MG/1 ML VIAL IV PRN (20:37)
[2021-08-29] MEDS: HALOPERIDOL 5 MG/ML AMP IM PRN (20:37)
[2021-08-30] MEDS: KETOROLAC 30 MG/1 ML VIAL IV SCH ×3 (00:16→12:27)
[2021-08-30] MEDS: ALBUTEROL/IPRATROPIUM 3 ML NEB RESP TX SCH ×4 (00:45→19:37)
[2021-08-30] MEDS: SODIUM CHLORIDE 0.9% 1,000 ML IV SCH ×2 (04:02→17:07)
[2021-08-30] MEDS: methylPREDNISolone SOD SUC 40 MG/1 ML VIAL IV SCH ×2 (04:02→17:09)
[2021-08-30] MEDS: ALBUMIN 25% 25 GM/100 ML VIAL IV SCH ×3 (04:02→21:20)
[2021-08-30] MEDS: VANCOMYCIN INJ 1,000 MG in SODIUM CHLORIDE 0.9% 250 ML IV SCH (05:40)
[2021-08-30 05:55] LABS: Basophils % 0.2 % (0.0-0.8); Eosinophils # 0.1 10*3/uL (0.0-0.87); Hematocrit 30.4 VOL% (35.7-47.0); Hemoglobin 9.9 GM/DL (12.0-16.0); Immature Granulocytes % 0.6 %; Immature Granulocytes Absolute 0.06 #; Lymphocytes % 20.3 % (21.3-54.2); Mean Corpuscular HGB Conc 32.6 GM/DL (32-36); Mean Corpuscular Volume 88.4 FL (87-102); Mean Platelet Volume 8.2 FL (9.6-12.0); Monocytes % 6.5 % (1.7-12.7); Neutrophils % 71.4 % (38.7-73.9); Platelet Count 652 T/CUMM (130-400); Red Blood Count 3.44 MC/CUMM (3.8-5.5); Red Cell Distribution Width 16.4 % (9.3-17.3); White Blood Count 9.8 T/CUMM (4-12)
[2021-08-30 06:11] LABS: Albumin 3.6 G/DL (3.4-5.0); Bilirubin,Total 0.4 MG/DL (0.20-1.00); Calcium 9.1 MG/DL (8.5-10.1); Osmolality,Calculated 276.8 MOS/KG (273-304); Total Protein 6.6 G/DL (6.4-8.2)
[2021-08-30 06:29] LABS: Hypochromia Slight; Platelet Estimate Increased
[2021-08-30] MEDS: HYDROmorphone 2 MG/1 ML VIAL IV PRN ×5 (07:58→21:20)
[2021-08-30] MEDS: PANTOPRAZOLE 40 MG TABLET PO SCH (08:00)
[2021-08-30] MEDS: ASPIRIN EC 81 MG TABLET PO SCH (08:00)
[2021-08-30] MEDS: LIDOCAINE 5% PATCH TRANSDERM SCH (08:00)
[2021-08-30] MEDS: QUEtiapine 25 MG TABLET PO SCH ×2 (08:00→21:19)
[2021-08-30] MEDS: DOCUSATE SODIUM 100 MG CAPSULE PO SCH ×2 (08:00→21:19)
[2021-08-30] MEDS: FERROUS SULFATE 325 MG TABLET PO SCH ×2 (08:00→21:19)
[2021-08-30] MEDS: PREGABALIN 50 MG CAPSULE PO SCH ×2 (08:00→21:19)
[2021-08-30] MEDS: carvediloL 3.125 MG TABLET PO SCH ×2 (08:03→21:19)
[2021-08-30] MEDS: POTASSIUM CHLORIDE 20 MEQ TABLET PO SCH ×2 (08:03→21:19)
[2021-08-30] MEDS: INSULIN REGULAR 100 UNIT/ML SUBCUT SCH ×4 (09:54→21:19)
[2021-08-30] MEDS: ENOXAPARIN 40 MG/0.4 ML SYRINGE SUBCUT SCH (15:23)
[2021-08-30] MEDS: HALOPERIDOL 5 MG/ML AMP IM PRN (21:20)
[2021-08-31] MEDS: VANCOMYCIN INJ 1,000 MG in SODIUM CHLORIDE 0.9% 250 ML IV SCH ×2 (00:46→17:51)
[2021-08-31] MEDS: ALBUTEROL/IPRATROPIUM 3 ML NEB RESP TX SCH ×4 (00:50→19:59)
[2021-08-31] MEDS: methylPREDNISolone SOD SUC 40 MG/1 ML VIAL IV SCH ×2 (04:36→17:45)
[2021-08-31] MEDS: ALBUMIN 25% 25 GM/100 ML VIAL IV SCH ×3 (04:50→21:13)
[2021-08-31 06:18] LABS: Basophils % 0.2 % (0.0-0.8); Eosinophils # 0.1 10*3/uL (0.0-0.87); Eosinophils % 1.2 % (0.00-10.9); Hematocrit 27.1 VOL% (35.7-47.0); Hemoglobin 8.4 GM/DL (12.0-16.0); Immature Granulocytes % 0.5 %; Immature Granulocytes Absolute 0.04 #; Lymphocytes # 2.1 10*3/uL (1.4-4.0); Mean Corpuscular Volume 91.2 FL (87-102); Mean Platelet Volume 8.3 FL (9.6-12.0); Neutrophils % 67.1 % (38.7-73.9); Platelet Count 515 T/CUMM (130-400); Red Blood Count 2.97 MC/CUMM (3.8-5.5); Red Cell Distribution Width 16.4 % (9.3-17.3); White Blood Count 8.6 T/CUMM (4-12)
[2021-08-31] MEDS: SODIUM CHLORIDE 0.9% 1,000 ML IV SCH (06:27)
[2021-08-31 06:56] LABS: Albumin 3.9 G/DL (3.4-5.0); Bilirubin,Total 0.6 MG/DL (0.20-1.00); Calcium 8.8 MG/DL (8.5-10.1); Osmolality,Calculated 284.3 MOS/KG (273-304); Potassium 4.3 MMOL/L (3.5-5.1); Total Protein 6.7 G/DL (6.4-8.2)
[2021-08-31] MEDS: HYDROmorphone 2 MG/1 ML VIAL IV PRN ×4 (07:36→22:11)
[2021-08-31] MEDS: FERROUS SULFATE 325 MG TABLET PO SCH ×2 (09:17→21:14)
[2021-08-31] MEDS: DOCUSATE SODIUM 100 MG CAPSULE PO SCH ×2 (09:19→21:14)
[2021-08-31] MEDS: QUEtiapine 25 MG TABLET PO SCH ×2 (09:19→21:14)
[2021-08-31] MEDS: carvediloL 3.125 MG TABLET PO SCH (09:19)
[2021-08-31] MEDS: PANTOPRAZOLE 40 MG TABLET PO SCH (09:19)
[2021-08-31] MEDS: ASPIRIN EC 81 MG TABLET PO SCH (09:20)
[2021-08-31] MEDS: POTASSIUM CHLORIDE 20 MEQ TABLET PO SCH ×2 (09:20→21:14)
[2021-08-31] MEDS: PREGABALIN 50 MG CAPSULE PO SCH ×2 (09:20→21:14)
[2021-08-31] MEDS: INSULIN REGULAR 100 UNIT/ML SUBCUT SCH ×4 (09:21→21:14)
[2021-08-31] MEDS: LIDOCAINE 5% PATCH TRANSDERM SCH (09:23)
[2021-08-31 09:39] LABS: Anisocytosis 2+; Hypochromia 1+; Ovalocytes Few; Platelet Estimate Increased; Schistocytes Slight
[2021-08-31] MEDS: carvediloL 12.5 MG TABLET PO SCH ×2 (13:45→21:14)
[2021-08-31] MEDS ORDERED: MAGNESIUM SULF RIDER 2 GM/50 ML PREMIX IV ONE ×2 (13:45→21:00)
[2021-08-31] MEDS: lisinopriL 10 MG TABLET PO SCH (15:35)
[2021-08-31] MEDS: ENOXAPARIN 40 MG/0.4 ML SYRINGE SUBCUT SCH (15:37)
[2021-08-31] MEDS ORDERED: cloNIDine 0.1 MG TABLET PO ONE (23:31)
[2021-09-01] MEDS: ALBUTEROL/IPRATROPIUM 3 ML NEB RESP TX SCH ×4 (00:40→19:56)
[2021-09-01] MEDS: methylPREDNISolone SOD SUC 40 MG/1 ML VIAL IV SCH ×2 (03:05→16:01)
[2021-09-01] MEDS: ALBUMIN 25% 25 GM/100 ML VIAL IV SCH ×2 (04:02→15:55)
[2021-09-01 05:25] LABS: Basophils % 0.2 % (0.0-0.8); Eosinophils # 0.1 10*3/uL (0.0-0.87); Eosinophils % 0.6 % (0.00-10.9); Hematocrit 26.7 VOL% (35.7-47.0); Hemoglobin 8.3 GM/DL (12.0-16.0); Immature Granulocytes % 0.6 %; Immature Granulocytes Absolute 0.06 #; Lymphocytes # 1.7 10*3/uL (1.4-4.0); Lymphocytes % 16.4 % (21.3-54.2); Mean Corpuscular HGB Conc 31.1 GM/DL (32-36); Mean Corpuscular Volume 91.1 FL (87-102); Mean Platelet Volume 8.5 FL (9.6-12.0); Monocytes % 5.8 % (1.7-12.7); Neutrophils % 76.4 % (38.7-73.9); Platelet Count 456 T/CUMM (130-400); Red Blood Count 2.93 MC/CUMM (3.8-5.5); Red Cell Distribution Width 16.7 % (9.3-17.3); White Blood Count 10.3 T/CUMM (4-12)
[2021-09-01 05:51] LABS: Albumin 4.4 G/DL (3.4-5.0); Bilirubin,Total 1.3 MG/DL (0.20-1.00); Calcium 9.3 MG/DL (8.5-10.1); Osmolality,Calculated 282.5 MOS/KG (273-304); Potassium 4.8 MMOL/L (3.5-5.1); Total Protein 7.4 G/DL (6.4-8.2)
[2021-09-01 05:57] LABS: Atypical Lymphocytes Few; Hypochromia 1+; Lymphocytes 19 % (20-55); Segmented Neutrophils 78 % (50-85); Total Cells Counted 100
[2021-09-01 05:58] LABS: Microcytosis 1+
[2021-09-01] MEDS: INSULIN REGULAR 100 UNIT/ML SUBCUT SCH ×4 (07:52→21:17)
[2021-09-01] MEDS ORDERED: LACTATED RINGERS 1,000 ML IV SCH (08:30)
[2021-09-01] MEDS: LIDOCAINE 5% PATCH TRANSDERM SCH (09:03)
[2021-09-01] MEDS: ASPIRIN EC 81 MG TABLET PO SCH (11:30)
[2021-09-01] MEDS: PREGABALIN 50 MG CAPSULE PO SCH ×2 (11:31→21:16)
[2021-09-01] MEDS: PANTOPRAZOLE 40 MG TABLET PO SCH (11:31)
[2021-09-01] MEDS: FERROUS SULFATE 325 MG TABLET PO SCH ×2 (11:32→21:20)
[2021-09-01] MEDS: DOCUSATE SODIUM 100 MG CAPSULE PO SCH ×2 (11:32→21:16)
[2021-09-01] MEDS: lisinopriL 10 MG TABLET PO SCH (11:32)
[2021-09-01] MEDS: carvediloL 12.5 MG TABLET PO SCH ×2 (11:32→21:16)
[2021-09-01] MEDS: POTASSIUM CHLORIDE 20 MEQ TABLET PO SCH ×2 (11:32→21:16)
[2021-09-01] MEDS: QUEtiapine 25 MG TABLET PO SCH ×2 (11:32→21:16)
[2021-09-01] MEDS ORDERED: DEXTROSE 50% 25 GM/50 ML VIAL IV PRN (11:50)
[2021-09-01] MEDS ORDERED: GLUCAGON 1 MG VIAL IM PRN (11:50)
[2021-09-01] MEDS: VANCOMYCIN INJ 1,000 MG in SODIUM CHLORIDE 0.9% 250 ML IV SCH (14:20)
[2021-09-01] MEDS: HYDROmorphone 2 MG/1 ML VIAL IV PRN ×3 (14:20→22:57)
[2021-09-01] MEDS: ENOXAPARIN 40 MG/0.4 ML SYRINGE SUBCUT SCH (16:03)
[2021-09-01] MEDS: fentaNYL 12 MCG/HR PATCH TRANSDERM SCH (16:03)
[2021-09-01] MEDS: cloNIDine 0.1 MG TABLET PO SCH (21:16)
[2021-09-02] MEDS: ALBUTEROL/IPRATROPIUM 3 ML NEB RESP TX SCH ×4 (01:03→19:22)
[2021-09-02] MEDS ORDERED: cloNIDine 0.1 MG TABLET PO ONE (01:12)
[2021-09-02] MEDS ORDERED: cloNIDine 0.1 MG TABLET PO PRN (02:14)
[2021-09-02] MEDS: methylPREDNISolone SOD SUC 40 MG/1 ML VIAL IV SCH ×2 (03:34→14:54)
[2021-09-02 05:02] LABS: Basophils % 0.3 % (0.0-0.8); Eosinophils # 0.1 10*3/uL (0.0-0.87); Eosinophils % 0.6 % (0.00-10.9); Hematocrit 25.9 VOL% (35.7-47.0); Immature Granulocytes % 0.4 %; Immature Granulocytes Absolute 0.04 #; Lymphocytes # 1.7 10*3/uL (1.4-4.0); Mean Corpuscular HGB Conc 30.9 GM/DL (32-36); Mean Corpuscular Volume 91.5 FL (87-102); Mean Platelet Volume 8.7 FL (9.6-12.0); Monocytes % 7.5 % (1.7-12.7); Neutrophils % 74.2 % (38.7-73.9); Platelet Count 410 T/CUMM (130-400); Red Blood Count 2.83 MC/CUMM (3.8-5.5); Red Cell Distribution Width 17.2 % (9.3-17.3); White Blood Count 10.2 T/CUMM (4-12)
[2021-09-02 05:21] LABS: Calcium 9.7 MG/DL (8.5-10.1); Osmolality,Calculated 284.8 MOS/KG (273-304); Potassium 4.9 MMOL/L (3.5-5.1)
[2021-09-02] MEDS: VANCOMYCIN INJ 1,000 MG in SODIUM CHLORIDE 0.9% 250 ML IV SCH (05:22)
[2021-09-02] MEDS: carvediloL 12.5 MG TABLET PO SCH ×2 (08:30→20:32)
[2021-09-02] MEDS: INSULIN REGULAR 100 UNIT/ML SUBCUT SCH ×4 (08:30→22:05)
[2021-09-02] MEDS: PANTOPRAZOLE 40 MG TABLET PO SCH (08:30)
[2021-09-02] MEDS: DOCUSATE SODIUM 100 MG CAPSULE PO SCH ×2 (08:30→20:32)
[2021-09-02] MEDS: lisinopriL 10 MG TABLET PO SCH (08:30)
[2021-09-02] MEDS: QUEtiapine 25 MG TABLET PO SCH ×2 (08:30→20:32)
[2021-09-02] MEDS: LACTATED RINGERS 1,000 ML IV SCH (08:30)
[2021-09-02] MEDS: FERROUS SULFATE 325 MG TABLET PO SCH ×2 (08:30→20:32)
[2021-09-02] MEDS: ASPIRIN EC 81 MG TABLET PO SCH (08:30)
[2021-09-02] MEDS: POTASSIUM CHLORIDE 20 MEQ TABLET PO SCH ×2 (08:30→20:32)
[2021-09-02] MEDS: LIDOCAINE 5% PATCH TRANSDERM SCH ×2 (08:30)
[2021-09-02] MEDS: PREGABALIN 50 MG CAPSULE PO SCH ×2 (08:30→20:32)
[2021-09-02] MEDS ORDERED: fentaNYL 100 MCG/2 ML VIAL ONE (11:11)
[2021-09-02] MEDS ORDERED: LIDOCAINE 2% 5 ML VIAL ONE (11:34)
[2021-09-02] MEDS ORDERED: propofoL 200 MG/20 ML VIAL IV ONE (11:34)
[2021-09-02] MEDS: HYDROmorphone 2 MG/1 ML VIAL IV PRN ×2 (14:55→20:43)
[2021-09-02] MEDS: ENOXAPARIN 40 MG/0.4 ML SYRINGE SUBCUT SCH (14:57)
[2021-09-02] MEDS: cloNIDine 0.1 MG TABLET PO SCH (20:32)
[2021-09-03] MEDS: VANCOMYCIN INJ 1,000 MG in SODIUM CHLORIDE 0.9% 250 ML IV SCH ×2 (00:04→18:16)
[2021-09-03] MEDS: ALBUTEROL/IPRATROPIUM 3 ML NEB RESP TX SCH ×4 (00:33→19:49)
[2021-09-03] MEDS: methylPREDNISolone SOD SUC 40 MG/1 ML VIAL IV SCH (03:11)
[2021-09-03] MEDS: HYDROmorphone 2 MG/1 ML VIAL IV PRN (05:15)
[2021-09-03 05:27] LABS: Basophils % 0.4 % (0.0-0.8); Eosinophils # 0.2 10*3/uL (0.0-0.87); Eosinophils % 1.5 % (0.00-10.9); Hematocrit 26.7 VOL% (35.7-47.0); Hemoglobin 8.1 GM/DL (12.0-16.0); Immature Granulocytes % 0.7 %; Immature Granulocytes Absolute 0.07 #; Lymphocytes # 2.3 10*3/uL (1.4-4.0); Lymphocytes % 22.9 % (21.3-54.2); Mean Corpuscular HGB Conc 30.3 GM/DL (32-36); Mean Platelet Volume 9.2 FL (9.6-12.0); Monocytes % 7.8 % (1.7-12.7); Neutrophils % 66.7 % (38.7-73.9); Platelet Count 372 T/CUMM (130-400); Red Blood Count 2.84 MC/CUMM (3.8-5.5); Red Cell Distribution Width 17.1 % (9.3-17.3); White Blood Count 10.1 T/CUMM (4-12)
[2021-09-03 05:48] LABS: Calcium 9.6 MG/DL (8.5-10.1); Osmolality,Calculated 286.1 MOS/KG (273-304); Potassium 5.1 MMOL/L (3.5-5.1)
[2021-09-03] MEDS: hydrOXYzine HCL 25 MG TABLET PO PRN (09:23)
[2021-09-03] MEDS: ASPIRIN EC 81 MG TABLET PO SCH (09:23)
[2021-09-03] MEDS: POTASSIUM CHLORIDE 20 MEQ TABLET PO SCH ×2 (09:23→20:55)
[2021-09-03] MEDS: PREGABALIN 50 MG CAPSULE PO SCH ×2 (09:23→20:54)
[2021-09-03] MEDS: QUEtiapine 25 MG TABLET PO SCH ×2 (09:24→20:55)
[2021-09-03] MEDS: FERROUS SULFATE 325 MG TABLET PO SCH ×2 (09:24→20:55)
[2021-09-03] MEDS: predniSONE 20 MG TABLET PO SCH (09:24)
[2021-09-03] MEDS: DOCUSATE SODIUM 100 MG CAPSULE PO SCH ×2 (09:24→20:55)
[2021-09-03] MEDS: PANTOPRAZOLE 40 MG TABLET PO SCH (09:24)
[2021-09-03] MEDS: carvediloL 12.5 MG TABLET PO SCH ×3 (09:25→20:55)
[2021-09-03] MEDS: LIDOCAINE 5% PATCH TRANSDERM SCH (09:33)
[2021-09-03] MEDS: LACTATED RINGERS 1,000 ML IV SCH (11:20)
[2021-09-03] MEDS: INSULIN REGULAR 100 UNIT/ML SUBCUT SCH ×4 (11:20→20:55)
[2021-09-03] MEDS: lisinopriL 10 MG TABLET PO SCH (11:21)
[2021-09-03] MEDS: HYDROmorphone 2 MG/1 ML VIAL IV SCH ×2 (11:26→17:03)
[2021-09-03] MEDS: ENOXAPARIN 40 MG/0.4 ML SYRINGE SUBCUT SCH (14:59)
[2021-09-03] MEDS: HALOPERIDOL 5 MG/ML AMP IM PRN (16:12)
[2021-09-03] MEDS: cloNIDine 0.1 MG TABLET PO SCH (20:55)
[2021-09-04] MEDS: HALOPERIDOL 5 MG/ML AMP IM PRN (00:10)
[2021-09-04] MEDS: HYDROmorphone 2 MG/1 ML VIAL IV SCH ×3 (00:10→11:59)
[2021-09-04] MEDS ORDERED: LEVOFLOXACIN INJ 500 MG/100 ML PREMIX IV SCH (00:30)
[2021-09-04] MEDS: ALBUTEROL/IPRATROPIUM 3 ML NEB RESP TX SCH ×2 (00:32→07:30)
[2021-09-04 04:55] LABS: Basophils # 0.1 10*3/uL (0.0-0.2); Basophils % 0.5 % (0.0-0.8); Eosinophils # 0.1 10*3/uL (0.0-0.87); Eosinophils % 1.3 % (0.00-10.9); Hematocrit 26.8 VOL% (35.7-47.0); Hemoglobin 8.3 GM/DL (12.0-16.0); Immature Granulocytes % 0.3 %; Immature Granulocytes Absolute 0.03 #; Lymphocytes # 1.8 10*3/uL (1.4-4.0); Mean Corpuscular Volume 90.5 FL (87-102); Monocytes % 7.7 % (1.7-12.7); Neutrophils % 71.2 % (38.7-73.9); Platelet Count 333 T/CUMM (130-400); Red Blood Count 2.96 MC/CUMM (3.8-5.5); White Blood Count 9.7 T/CUMM (4-12)
[2021-09-04 05:22] LABS: Alanine Aminotransferase 17 U/L (13-56); Albumin 3.8 G/DL (3.4-5.0); Alkaline Phosphatase 58 U/L (45-117); Aspartate Amino Transferase 7 U/L (0-37); Bilirubin,Total < 0.39 MG/DL (0.20-1.00); Blood Urea Nitrogen 24 MG/DL (7-18); Calcium 9.3 MG/DL (8.5-10.1); Carbon Dioxide 24 MMOL/L (21-32); Estimated Glom Filtration Rate 73 ML/MIN; Glucose 108 MG/DL (74-106); Osmolality,Calculated 281.5 MOS/KG (273-304); Potassium 4.4 MMOL/L (3.5-5.1); Sodium 139 MMOL/L (136-145)
[2021-09-04 08:38] VITALS: BP 155/97
[2021-09-04] MEDS: predniSONE 20 MG TABLET PO SCH (09:17)
[2021-09-04] MEDS: hydrOXYzine HCL 25 MG TABLET PO PRN (09:17)
[2021-09-04] MEDS: PREGABALIN 50 MG CAPSULE PO SCH (09:17)
[2021-09-04] MEDS: ASPIRIN EC 81 MG TABLET PO SCH (09:17)
[2021-09-04] MEDS: lisinopriL 10 MG TABLET PO SCH (09:18)
[2021-09-04] MEDS: FERROUS SULFATE 325 MG TABLET PO SCH (09:18)
[2021-09-04] MEDS: carvediloL 12.5 MG TABLET PO SCH (09:18)
[2021-09-04] MEDS: DOCUSATE SODIUM 100 MG CAPSULE PO SCH (09:18)
[2021-09-04] MEDS: POTASSIUM CHLORIDE 20 MEQ TABLET PO SCH (09:18)
[2021-09-04] MEDS: PANTOPRAZOLE 40 MG TABLET PO SCH (09:18)
[2021-09-04] MEDS: QUEtiapine 25 MG TABLET PO SCH (09:18)
[2021-09-04] MEDS: fentaNYL 12 MCG/HR PATCH TRANSDERM SCH (10:29)
[2021-09-04] MEDS: LIDOCAINE 5% PATCH TRANSDERM SCH (10:29)
[2021-09-04] MEDS: INSULIN REGULAR 100 UNIT/ML SUBCUT SCH (13:35)
[2021-09-04] MEDS: LACTATED RINGERS 1,000 ML IV SCH (13:36)
== END 2021-09-04 13:27 | DRG 551 ==
LOC: EDUNIT# → N.ED 09:12 → N.EDINP 09:12 → N.TELEN 23:42
PROVIDERS: ADMIT Internal Medicine; ATTEND Internal Medicine

== ENCOUNTER 2021-12-03 11:39 | Observation (INO) ==
[2021-12-03] MEDS ORDERED: ONDANSETRON 4 MG/2 ML VIAL IV STA (12:04)
[2021-12-03] MEDS ORDERED: MORPHINE 2 MG/1 ML SYRINGE IV STA ×2 (12:04→14:26)
[2021-12-03] MEDS ORDERED: ASPIRIN 325 MG TABLET PO STA (12:04)
[2021-12-03 12:17] LABS: Basophils % 0.9 % (0.0-0.8); Eosinophils # 0.5 10*3/uL (0.0-0.87); Eosinophils % 10.6 % (0.00-10.9); Hematocrit 33.6 VOL% (35.7-47.0); Hemoglobin 10.8 GM/DL (12.0-16.0); Immature Granulocytes % 0.5 %; Immature Granulocytes Absolute 0.02 #; Lymphocytes # 1.6 10*3/uL (1.4-4.0); Lymphocytes % 35.5 % (21.3-54.2); Mean Corpuscular HGB Conc 32.1 GM/DL (32-36); Mean Corpuscular Volume 89.8 FL (87-102); Mean Platelet Volume 9.9 FL (9.6-12.0); Monocytes # 0.3 10*3/uL (0.11-0.8); Monocytes % 5.9 % (1.7-12.7); Neutrophils % 46.6 % (38.7-73.9); Platelet Count 251 T/CUMM (130-400); Red Blood Count 3.74 MC/CUMM (3.8-5.5); Red Cell Distribution Width 14.8 % (9.3-17.3); White Blood Count 4.4 T/CUMM (4-12)
[2021-12-03 12:35] LABS: Alanine Aminotransferase 22 U/L (13-56); Alkaline Phosphatase 118 U/L (45-117); Aspartate Amino Transferase 25 U/L (0-37); Bilirubin,Total < 0.39 MG/DL (0.20-1.00); Blood Urea Nitrogen 25 MG/DL (7-18); Calcium 9.4 MG/DL (8.5-10.1); Carbon Dioxide 25 MMOL/L (21-32); Chloride 109 MMOL/L (98-107); Glucose 84 MG/DL (74-106); Osmolality,Calculated 281.4 MOS/KG (273-304); Potassium 4.2 MMOL/L (3.5-5.1); Sodium 140 MMOL/L (136-145); Total Protein 7.9 G/DL (6.4-8.2)
[2021-12-03 12:56] LABS: Bacteria,Urine Occasional /HPF (Few); Glucose,Urine (UA) Negative (Negative); Ketones,Urine Negative (Negative); Nitrite,Urine Negative (Negative); Protein,Urine Negative (Negative); Squamous Epithelial Cell,Urine Occasional /HPF (0-10); Urine Appearance Clear (Clear); Urine Color Yellow (Yellow); Urine pH 5.5 (4.5-8.0)
[2021-12-03 12:57] LABS: Bilirubin,Urine Negative (Negative); Blood, Urine Negative (Negative); Urine Urobilinogen 0.2 eU/dL (<2.0)
[2021-12-03] MEDS ORDERED: ONDANSETRON 4 MG/2 ML VIAL IV PRN (14:35)
[2021-12-03] MEDS ORDERED: ACETAMINOPHEN 325 MG TABLET PO PRN ×2 (14:35→22:19)
[2021-12-03] MEDS ORDERED: GLUCAGON 1 MG VIAL IM PRN (14:35)
[2021-12-03] MEDS ORDERED: DEXTROSE 10% 250 ML BAG IV PRN (14:38)
[2021-12-03] MEDS: SODIUM CHLORIDE 0.9% 1,000 ML IV SCH ×2 (14:45→22:01)
[2021-12-03] MEDS: KETOROLAC 30 MG/1 ML VIAL IV SCH ×2 (18:19→23:44)
[2021-12-03] MEDS ORDERED: DOCUSATE SODIUM 100 MG CAPSULE PO SCH (21:00)
[2021-12-03] MEDS: LIDOCAINE 5% PATCH TRANSDERM SCH (22:01)
[2021-12-03] MEDS ORDERED: hydrOXYzine HCL 25 MG TABLET PO PRN (22:19)
[2021-12-03] MEDS ORDERED: MAGNESIUM HYDROXIDE SUSP 30 ML UDCUP PO PRN ×2 (22:19)
[2021-12-03] MEDS ORDERED: NON-FORMULARY MEDICATION (Menthol [Biofreeze (Menthol)] 4 % Gel) TOP PRN ×2 (22:34→23:00)
[2021-12-03] MEDS: PREGABALIN 100 MG CAPSULE PO SCH (23:43)
[2021-12-03] MEDS: MELATONIN 3 MG TABLET PO SCH (23:43)
[2021-12-03] MEDS: NICOTINE 7 MG/24 HR PATCH TRANSDERM SCH (23:44)
[2021-12-04 03:53] LABS: Basophils % 0.5 % (0.0-0.8); Eosinophils # 0.5 10*3/uL (0.0-0.87); Hematocrit 29.8 VOL% (35.7-47.0); Hemoglobin 9.5 GM/DL (12.0-16.0); Immature Granulocytes % 0.3 %; Immature Granulocytes Absolute 0.02 #; Lymphocytes % 33.2 % (21.3-54.2); Mean Corpuscular HGB Conc 31.9 GM/DL (32-36); Mean Corpuscular Volume 89.2 FL (87-102); Mean Platelet Volume 9.7 FL (9.6-12.0); Monocytes # 0.3 10*3/uL (0.11-0.8); Platelet Count 231 T/CUMM (130-400); Red Blood Count 3.34 MC/CUMM (3.8-5.5); Red Cell Distribution Width 14.6 % (9.3-17.3)
[2021-12-04 04:14] LABS: Alanine Aminotransferase 24 U/L (13-56); Albumin 2.6 G/DL (3.4-5.0); Alkaline Phosphatase 100 U/L (45-117); Aspartate Amino Transferase 32 U/L (0-37); Bilirubin,Total < 0.39 MG/DL (0.20-1.00); Blood Urea Nitrogen 22 MG/DL (7-18); Calcium 8.3 MG/DL (8.5-10.1); Carbon Dioxide 26 MMOL/L (21-32); Chloride 111 MMOL/L (98-107); Ferritin 79.3 ng/mL (8-252); Glucose 80 MG/DL (74-106); Iron 98 UG/DL (50-170); Potassium 3.7 MMOL/L (3.5-5.1); Sodium 143 MMOL/L (136-145); Total Protein 6.6 G/DL (6.4-8.2)
[2021-12-04 04:21] LABS: Eosinophils 6 % (0-10); Hypochromia Slight; Lymphocytes 38 % (20-55); Microcytosis Slight; Platelet Estimate Adequate; Total Cells Counted 100
[2021-12-04] MEDS: KETOROLAC 30 MG/1 ML VIAL IV SCH ×3 (05:27→17:25)
[2021-12-04] MEDS: INSULIN REGULAR 100 UNIT/ML SUBCUT SCH ×2 (05:28→15:03)
[2021-12-04] MEDS: ALBUTEROL/IPRATROPIUM 3 ML NEB RESP TX SCH ×2 (07:10→19:30)
[2021-12-04] MEDS ORDERED: carvediloL 12.5 MG TABLET PO SCH (09:00)
[2021-12-04] MEDS ORDERED: INSULIN DETEMIR 100 UNIT/ML SUBCUT SCH (09:00)
[2021-12-04] MEDS: ASPIRIN CHEW 81 MG TABLET PO SCH (09:14)
[2021-12-04] MEDS: PHENYTOIN ER 100 MG CAPSULE PO SCH (09:15)
[2021-12-04] MEDS: DOCUSATE SODIUM 100 MG CAPSULE PO SCH ×2 (09:15→21:32)
[2021-12-04] MEDS: FERROUS SULFATE 325 MG TABLET PO SCH ×2 (09:15→21:31)
[2021-12-04] MEDS: PANTOPRAZOLE 40 MG TABLET PO SCH (09:15)
[2021-12-04] MEDS: QUEtiapine 25 MG TABLET PO SCH ×2 (09:15→21:31)
[2021-12-04] MEDS: lisinopriL 10 MG TABLET PO SCH (09:16)
[2021-12-04] MEDS: PREGABALIN 100 MG CAPSULE PO SCH ×2 (09:16→21:31)
[2021-12-04] MEDS: LIDOCAINE 5% PATCH TRANSDERM SCH ×2 (09:16→11:26)
[2021-12-04] MEDS: NICOTINE 7 MG/24 HR PATCH TRANSDERM SCH (10:15)
[2021-12-04] MEDS: SODIUM CHLORIDE 0.9% 1,000 ML IV SCH ×3 (10:15→21:32)
[2021-12-04] MEDS ORDERED: MAGNESIUM SULF RIDER 2 GM/50 ML PREMIX IV ONE (13:08)
[2021-12-04] MEDS: MAGNESIUM HYDROXIDE SUSP 30 ML UDCUP PO SCH (18:29)
[2021-12-04] MEDS ORDERED: cloNIDine 0.1 MG TABLET PO SCH (21:00)
[2021-12-04] MEDS ORDERED: SIMVASTATIN 20 MG TABLET PO SCH (21:00)
[2021-12-04] MEDS ORDERED: MIRTAZAPINE 15 MG TABLET PO SCH (21:00)
[2021-12-04] MEDS: MELATONIN 3 MG TABLET PO SCH (21:30)
[2021-12-04] MEDS: carvediloL 6.25 MG TABLET PO SCH (21:31)
[2021-12-05] MEDS: KETOROLAC 30 MG/1 ML VIAL IV SCH ×2 (00:21→05:05)
[2021-12-05] MEDS: MAGNESIUM HYDROXIDE SUSP 30 ML UDCUP PO SCH ×2 (02:52→09:58)
[2021-12-05] MEDS: SODIUM CHLORIDE 0.9% 1,000 ML IV SCH (04:45)
[2021-12-05] MEDS: INSULIN REGULAR 100 UNIT/ML SUBCUT SCH (06:03)
[2021-12-05] MEDS: ALBUTEROL/IPRATROPIUM 3 ML NEB RESP TX SCH (07:08)
[2021-12-05] MEDS: PANTOPRAZOLE 40 MG TABLET PO SCH (08:35)
[2021-12-05] MEDS: PREGABALIN 100 MG CAPSULE PO SCH (08:35)
[2021-12-05] MEDS: lisinopriL 10 MG TABLET PO SCH (08:35)
[2021-12-05] MEDS: PHENYTOIN ER 100 MG CAPSULE PO SCH (08:35)
[2021-12-05] MEDS: QUEtiapine 25 MG TABLET PO SCH (08:35)
[2021-12-05] MEDS: DOCUSATE SODIUM 100 MG CAPSULE PO SCH (08:35)
[2021-12-05] MEDS: carvediloL 6.25 MG TABLET PO SCH (08:35)
[2021-12-05] MEDS: ASPIRIN CHEW 81 MG TABLET PO SCH (08:35)
[2021-12-05] MEDS: FERROUS SULFATE 325 MG TABLET PO SCH (08:36)
[2021-12-05] MEDS: LIDOCAINE 5% PATCH TRANSDERM SCH ×2 (08:39)
[2021-12-05] MEDS: NICOTINE 7 MG/24 HR PATCH TRANSDERM SCH (08:39)
[2021-12-05 08:44] VITALS: BP 133/88
[2021-12-06] MEDS ORDERED: fentaNYL 12 MCG/HR PATCH TRANSDERM SCH (09:00)
== END 2021-12-05 10:56 ==
LOC: N.ED 11:39 → N.EDINP 11:39 → N.TELEN 19:13
PROVIDERS: ADMIT Internal Medicine; ATTEND Internal Medicine